=== PATIENT | male | born 1970 | race Caucasian/White ===

== ENCOUNTER 2018-11-06 17:44 | Observation (INO) | payer OTHER ==
--- NOTE | 2018-11-06 17:52 | PDOC ---
Attending Attestation - HPI HPI: 11/06/18 18:34 The patient is a 48 year old male, with a significant past medical history of sarcoidosis, who presents to the ED complaining of chest pain and shortness of breath for the past 3 days. He reports that his chest pain is localized on the left side of his chest. He denies any radiation of the pain. He notes that his pain is exacerbated when he takes a deep breath. He reports that he was at urgent care earlier today and was sent to the ED for further evaluation. The patient denies headache and dizziness. Denies fever, chills, nausea, vomiting, diarrhea or constipation. Allergies: None Past surgical history: None reported Social History: No alcohol, tobacco or drug use reported Constitutional: Awake, alert, oriented. No acute distress. Head: Normocephalic. Atraumatic Eyes: PERRL. EOMI. Conjunctivae are not pale. ENT: Mucous membranes are moist and intact. Posterior pharynx without exudates or erythema. Uvula midline. Neck: Supple. Full ROM. No lymphadenopathy. Cardiovascular: Regular rate. Regular rhythm. S1, S2 regular. Distal pulses are 2+ and symmetric. Pulmonary/Chest: No evidence of respiratory distress. Clear to auscultation bilaterally No wheezing, rales or rhonchi. Abdominal: Soft and non-distended. There is no tenderness. No rebound, guarding or rigidity. No organomegaly. No palpable masses. Good bowel sounds. Back: No CVA tenderness. Musculoskeletal: No edema. No cyanosis. No clubbing. Full range of motion in all extremities. Nocalf tenderness. Radial/pedal pulses are intact and 2+ bilaterally Skin: Skin is warm and dry. No petechiae. No purpura. Neurological: Alert and oriented to person, place, and time. Cranial nerves II -XII are grossly intact. Normal speech. Strength is grossly symmetric. No sensory deficits. Psychiatric: Good eye contact. Normal interaction, affect and behavior. <Fermín Urias - Last Filed: 11/06/18 18:34> - Resident Resident Name: Trevor Randolph - ED Attending Attestation I have performed the following: I have examined & evaluated the patient, The case was reviewed & discussed with the resident, I agree w/resident's findings & plan, Exceptions are as noted - Medical Decision Making 11/06/18 18:46 Assessment: The patient's pleuritic chest pain is most consistent with a musculoskeletal origin. He has had no symptoms of recurrence of sarcoidosis, chest infection, or embolism. His respiratory rate is normal. He is not dyspneic , but the shortness of breath he describes is more due to his discomfort. It is not related to exertion. Sarcoid has been in remission for number of years, he is consistently followed up with scans, most recent within the last 6 months. Plan: Chest x-ray, d-dimer, and further evaluation depending on results. <Abebe Pérez - Last Filed: 11/06/18 18:48>
--- NOTE | 2018-11-06 17:52 | PDOC ---
History of Present Illness - General Chief Complaint: Shortness of Breath Stated Complaint: SHORTNESS OF BREATH Time Seen by Provider: 11/06/18 17:51 Past History - Past Medical History Allergies/Adverse Reactions: Allergies Allergy/AdvReac Type Severity Reaction Status Date / Time No Known Allergies Allergy Verified 09/21/14 02:09 Home Medications: Ambulatory Orders Ibuprofen [Motrin -] 600 mg PO TID #21 tablet 09/21/14 Oxycodone HCl/Acetaminophen [Percocet 5-325 mg Tablet -] 1 - 2 tab PO Q6H #14 tablet 09/21/14 Tamsulosin HCl [Flomax] 0.4 mg PO DAILY #20 capsule 09/21/14 - Suicide/Smoking/Psychosocial Hx Smoking History: Never smoked Hx Alcohol Use: No *DC/Admit/Observation/Transfer - Discharge Dispostion Condition at time of disposition: Stable - Referrals - Patient Instructions - Post Discharge Activity
[2018-11-06 18:45] LABS: BASO % 0.4 % (0-2.0); EOS % 3.1 % (0-4.5); HEMATOCRIT 46.1 % (35.4-49); HEMOGLOBIN 15.3 GM/dl (11.7-16.9); MCH 29.3 pg (25.7-33.7); MCHC 33.2 g/dl (32.0-35.9); MEAN CELL VOLUME 88.2 fl (80-96); MEAN PLT VOLUME 8.9 fl (7.5-11.1); MONO % 10.9 % (3.8-10.2); NEUT % 65.6 % (42.8-82.8); PLATELET COUNT 232 K/MM3 (134-434); RBC 5.22 M/mm3 (4.00-5.60); RDW 12.9 % (11.9-15.9); WHITE BLOOD COUNT 5.5 K/mm3 (4.0-10.8)
--- NOTE | 2018-11-06 18:48 | PDOC ---
History of Present Illness - General Chief Complaint: Shortness of Breath Stated Complaint: SHORTNESS OF BREATH and chest pain Time Seen by Provider: 11/06/18 17:51 History Source: Patient Exam Limitations: No Limitations - History of Present Illness Initial Comments: 11/06/18 18:53 Patient is a 48M with history of sarcoidosis here today complaining of chest pain and shortness of breath for the past two days. Patient describes his pain as a stabbing in the left side of his chest that worsens with inspiration. Denies fevers, chills, nausea, vomiting. Denies cough. Denies taking steroids at this time for sarcoidosis. Denies leg swelling, hemoptysis, recent travel. Patient was evaluated at [facility] and referred to ED for chest pain workup including d-dimer. Past History - Past Medical History Allergies/Adverse Reactions: Allergies Allergy/AdvReac Type Severity Reaction Status Date / Time No Known Allergies Allergy Verified 11/06/18 17:53 Home Medications: Ambulatory Orders NK [No Known Home Medication] 11/06/18 Asthma: (sarcodosis) COPD: No - Suicide/Smoking/Psychosocial Hx Smoking History: Former smoker Have you smoked in the past 12 months: No Number of Cigarettes Smoked Daily: 1 If you are a former smoker, when did you quit?: 2009 Information on smoking cessation initiated: No Hx Alcohol Use: Yes (socially) Drug/Substance Use Hx: No Review of Systems - Review of Systems Comments:: 11/06/18 18:55 GENERAL/CONSTITUTIONAL: No fever or chills. No weakness. HEAD, EYES, EARS, NOSE AND THROAT: No change in vision. No ear pain or discharge. No sore throat. CARDIOVASCULAR: +chest pain +shortness of breath RESPIRATORY: No cough, wheezing, or hemoptysis. GASTROINTESTINAL: No nausea, vomiting, diarrhea or constipation. GENITOURINARY: No dysuria, frequency, or change in urination. MUSCULOSKELETAL: No joint or muscle swelling or pain. No neck or back pain. SKIN: No rash NEUROLOGIC: No headache, vertigo, loss of consciousness, or change in strength/ sensation. HEMATOLOGIC/LYMPHATIC: No anemia, easy bleeding, or history of blood clots. ALLERGIC/IMMUNOLOGIC: No hives or skin allergy. *Physical Exam - Vital Signs Last Vital Signs Temp Pulse Resp BP Pulse Ox 98.4 F 73 18 130/88 99 11/06/18 17:44 02/20/19 17:44 11/06/18 17:44 11/06/18 17:44 11/06/18 17:44 - Physical Exam Comments: 11/06/18 18:55 GENERAL: Awake, alert, and fully oriented, in no acute distress HEAD: No signs of trauma, normocephalic, atraumatic EYES: PERRLA, EOMI, sclera anicteric, conjunctiva clear ENT: Auricles normal inspection, hearing grossly normal, nares patent, oropharynx clear without exudates. Moist mucosa NECK: Normal ROM, supple, no lymphadenopathy, JVD, or masses LUNGS: No distress, speaks full sentences, clear to auscultation bilaterally HEART: Regular rate and rhythm, normal S1 and S2, no murmurs, rubs or gallops, peripheral pulses normal and equal bilaterally. ABDOMEN: Soft, nontender, normoactive bowel sounds. No guarding, no rebound. No masses EXTREMITIES: Normal inspection, Normal range of motion, no edema. No clubbing or cyanosis. NEUROLOGICAL: Cranial nerves II through XII grossly intact. Normal speech, normal gait, no focal sensorimotor deficits SKIN: Warm, Dry, normal turgor, no rashes or lesions noted. Moderate Sedation - Procedure Monitoring Vital Signs: Procedure Monitoring Vital Signs Temperature 98.4 F 11/06/18 17:44 Pulse Rate 73 11/06/18 17:44 Respiratory Rate 18 11/06/18 17:44 Blood Pressure 130/88 11/06/18 17:44 O2 Sat by Pulse Oximetry (%) 99 11/06/18 17:44 ED Treatment Course - LABORATORY CBC & Chemistry Diagram: 11/06/18 18:34 11/06/18 18:34 - RADIOLOGY Radiology Studies Ordered: Category Date Time Status CHEST PA & LAT [RAD] Stat Radiology 11/06/18 18:19 Ordered Medical Decision Making - Medical Decision Making 11/06/18 18:55 Patient is 48M here today with shortness of breath and pleuritic chest pain. Vitals normal and stable. DDx includes, but is not limited to: acs, sarcoid exacerbation, pe. Will evaluate with cardiac workup and d-dimer. Patient is low risk, but unsure of sarcoidosis role in increasing risk of pe. Will r/o, but belief safe to do so with d-dimer. Signed out to night attending. *DC/Admit/Observation/Transfer Diagnosis at time of Disposition: Chest pain - Discharge Dispostion Condition at time of disposition: Stable - Referrals Referrals: Martín Lisa [Primary Care Provider] - - Patient Instructions - Post Discharge Activity
[2018-11-06 18:52] LABS: INR 1.03 (0.82-1.09); PROTHROMBIN TIME (PATIENT) 11.5 SEC (10.2-13.0)
[2018-11-06 18:59] LABS: ALBUMIN 4.3 g/dl (3.4-5.0); ALK PHOS 65 U/L (45-117); ANION GAP 11 MMOL/L (8-16); BILIRUBIN,TOTAL 0.7 mg/dl (0.2-1); BLOOD UREA NITROGEN 17 mg/dl (7-18); CALCIUM 9.2 mg/dl (8.5-10); CHLORIDE 99 mmol/L (98-107); CO2 24 mmol/L (21-32); CREATININE 0.9 mg/dl (0.55-1.3); GLUCOSE,RANDOM 99 mg/dl (74-106); MAGNESIUM 1.9 mg/dL (1.8-2.4); POTASSIUM 3.8 mmol/L (3.5-5.1); SGOT/AST 27 U/L (15-37); SGPT/ALT 36 U/L (13-61); SODIUM 134 mmol/L (136-145); TOT PROT 7.4 g/dl (6.4-8.2)
[2018-11-06] MEDS ORDERED: KETOROLAC TROMETHAMINE 30 MG/1 ML VIAL IVPUSH ONE (20:18)
[2018-11-06] MEDS ORDERED: KETOROLAC TROMETHAMINE 30 MG/1 ML VIAL ONE (20:31)
--- NOTE | 2018-11-06 20:36 | PDOC ---
*Physical Exam - Vital Signs Last Vital Signs Temp Pulse Resp BP Pulse Ox 98.4 F 73 18 130/88 99 11/06/18 17:44 11/06/18 17:44 11/06/18 17:44 11/06/18 17:44 11/06/18 17:44 ED Treatment Course - LABORATORY CBC & Chemistry Diagram: 11/06/18 18:34 11/06/18 18:34 - ADDITIONAL ORDERS Additional order review: Laboratory Results 11/06/18 11/06/18 11/06/18 18:34 18:34 18:34 PT with INR INR D-Dimer 736 H Sodium Potassium Chloride Carbon Dioxide Anion Gap BUN Creatinine Creat Clearance w eGFR Random Glucose Calcium Magnesium Total Bilirubin AST ALT Alkaline Phosphatase Creatine Kinase 118 Troponin I < 0.03 Total Protein Albumin 11/06/18 11/06/18 18:34 18:34 PT with INR 11.5 INR 1.03 D-Dimer Sodium 134 L Potassium 3.8 Chloride 99 Carbon Dioxide 24 Anion Gap 11 BUN 17 Creatinine 0.9 Creat Clearance w eGFR > 60 Random Glucose 99 Calcium 9.2 Magnesium 1.9 Total Bilirubin 0.7 AST 27 ALT 36 Alkaline Phosphatase 65 Creatine Kinase Troponin I Total Protein 7.4 Albumin 4.3 11/06/18 18:34 RBC 5.22 MCV 88.2 MCHC 33.2 RDW 12.9 MPV 8.9 Neutrophils % 65.6 Lymphocytes % 20.0 Monocytes % 10.9 H Eosinophils % 3.1 Basophils % 0.4 - RADIOLOGY Radiology Studies Ordered: Category Date Time Status CHEST CTA [CT] Stat CT Scan 11/06/18 20:32 Ordered - Medications Given in the ED: ED Medications Discontinued Medications Generic Name Dose Route Start Last Admin Trade Name Freq PRN Reason Stop Dose Admin Ketorolac Tromethamine 30 mg 11/06/18 20:18 11/06/18 20:28 Toradol Injection - IVPUSH 11/06/18 20:19 30 mg ONCE ONE Administration Progress Note - Progress Note Progress Note: Care of this patient was transferred to me from Dr. Mcbride at 1900 hrs. Patient is a 48-year-old male who comes in complaining of pleuritic-type chest pain. Patient was sent in by his PMD to rule out PE. She has a d-dimer pending if the d-dimer is elevated I will do a CT angiogram of his chest. 20:30 A d-dimer was moderately elevated so CT angios the chest was ordered and will follow results. 21:[address] angiogram of his chest was positive for multiple enlarged lymph nodes most likely secondary to sarcoidosis and in addition to that there is a possible subsegmental small pulmonary embolism. We'll obtain ultrasound Dopplers of the legs to rule out DVT 22:30 DOPPLERS OF THE LEGS WAS OBTAINED AND THEY WERE NEGATIVE FOR ANY DVT However given the CT findings of the chest patient will be admitted to an inpatient bed for further evaluation tomorrow via VQ scan. 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 *DC/Admit/Observation/Transfer Diagnosis at time of Disposition: Chest pain - Discharge Dispostion Condition at time of disposition: Stable Decision to Admit order: Yes - Referrals Referrals: Martín Lisa [Primary Care Provider] - - Patient Instructions - Post Discharge Activity
[2018-11-06] MEDS ORDERED: FUROSEMIDE 40 MG/4 ML INJECTABLE VIAL IVPUSH ONE (21:10)
[2018-11-07 02:21] VITALS: BMI 29.0
[2018-11-07] MEDS ORDERED: ALBUTEROL SO4 8 GM HFA INHALER IH PRN (02:28)
--- NOTE | 2018-11-07 02:28 | HP ---
CHIEF COMPLAINT: Chest Pain, SOB PCP: Dr. Martín Lisa (paper products printer) HISTORY OF PRESENT ILLNESS: This is a 48 y/o man with a past medical history of Sarcoidosis (2009). Who presents to the ED with midsternal chest pain, SOB x 2 days. Patient describes the pain as chest pressure non-radiating with increased pain on deep inspiration. Patient reports taking Advil with some relief. Patient denies fever , chills, cough, dizziness, CAMPO, palpitations, AP, N/V/D, constipation, dysuria ER course was notable for: (1) (2) (3) Recent Travel: None PAST MEDICAL HISTORY: Sarcoidosis PAST SURGICAL HISTORY: L- hand I/D Colonoscopy Social History: Smoking: Former < 5 cig, last use 2009 Alcohol: Occasional Drugs: None Single- employed [employer] Former History: Parents alive and healthy Allergies No Known Allergies Allergy (Verified 11/06/18 17:53) HOME MEDICATIONS: Home Medications Medication Instructions Recorded NK [No Known Home Medication] 11/06/18 REVIEW OF SYSTEMS CONSTITUTIONAL: Absent: fever, chills, diaphoresis, generalized weakness, malaise, loss of appetite, weight change HEENT: Absent: rhinorrhea, nasal congestion, throat pain, throat swelling, difficulty swallowing, mouth swelling, ear pain, eye pain, visual changes CARDIOVASCULAR: chest pain, Absent: syncope, palpitations, irregular heart rate, lightheadedness, peripheral edema RESPIRATORY: shortness of breath, dyspnea with exertion Absent: cough, orthopnea, wheezing, stridor, hemoptysis GASTROINTESTINAL: Absent: abdominal pain, abdominal distension, nausea, vomiting, diarrhea, constipation, melena, hematochezia GENITOURINARY: Absent: dysuria, frequency, urgency, hesitancy, hematuria, flank pain, genital pain MUSCULOSKELETAL: Absent: myalgia, arthralgia, joint swelling, back pain, neck pain SKIN: Absent: rash, itching, pallor HEMATOLOGIC/IMMUNOLOGIC: Absent: easy bleeding, easy bruising, lymphadenopathy, frequent infections ENDOCRINE: Absent: unexplained weight gain, unexplained weight loss, heat intolerance, cold intolerance NEUROLOGIC: Absent: headache, focal weakness or paresthesias, dizziness, unsteady gait, seizure, mental status changes, bladder or bowel incontinence PSYCHIATRIC: Absent: anxiety, depression, suicidal or homicidal ideation, hallucinations. PHYSICAL EXAMINATION Vital Signs - 24 hr 11/06/18 11/06/18 11/06/18 17:44 20:37 20:38 Temperature 98.4 F Pulse Rate 73 85 Pulse Rate [ 85 Left Radial] Respiratory 18 14 Rate Blood Pressure 130/88 Blood Pressure 134/93 [Right Arm] O2 Sat by Pulse 99 97 97 Oximetry (%) 11/06/18 11/07/18 20:39 01:30 Temperature 97.5 F L Pulse Rate 85 70 Pulse Rate [ Left Radial] Respiratory 18 Rate Blood Pressure 133/97 Blood Pressure [Right Arm] O2 Sat by Pulse 97 98 Oximetry (%) GENERAL: Awake, alert, and fully oriented, in no acute distress. HEAD: Normal with no signs of trauma. EYES: Pupils equal, round and reactive to light, extraocular movements intact, sclera anicteric, conjunctiva clear. No lid lag. EARS, NOSE, THROAT: Ears normal, nares patent, oropharynx clear without exudates. Moist mucous membranes. NECK: Normal range of motion, supple without lymphadenopathy, JVD, or masses. LUNGS: Breath sounds equal, clear to auscultation bilaterally. No wheezes, and no crackles. No accessory muscle use. HEART: Regular rate and rhythm, normal S1 and S2 without murmur, rub or gallop. CP not reproducible to palpation ABDOMEN: Soft, nontender, not distended, normoactive bowel sounds, no guarding, no rebound, no masses. No hepatomegaly or splenomegaly. MUSCULOSKELETAL: Normal range of motion at all joints. No bony deformities or tenderness. No CVA tenderness. UPPER EXTREMITIES: 2+ pulses, warm, well-perfused. No cyanosis. No clubbing. No peripheral edema. LOWER EXTREMITIES: 2+ pulses, warm, well-perfused. No calf tenderness. No peripheral edema. NEUROLOGICAL: Cranial nerves II-XII intact. Normal speech. Gait not observed. PSYCHIATRIC: Cooperative. Good eye contact. Appropriate mood and affect. SKIN: Warm, dry, normal turgor, no rashes or lesions noted, normal capillary refill. Laboratory Results - last 24 hr 11/06/18 11/06/18 11/06/18 18:34 18:34 18:34 WBC 5.5 RBC 5.22 Hgb 15.3 Hct 46.1 MCV 88.2 MCH 29.3 MCHC 33.2 RDW 12.9 Plt Count 232 MPV 8.9 Absolute Neuts (auto) 3.6 Neutrophils % 65.6 Lymphocytes % 20.0 Monocytes % 10.9 H Eosinophils % 3.1 Basophils % 0.4 PT with INR 11.5 INR 1.03 D-Dimer Sodium 134 L Potassium 3.8 Chloride 99 Carbon Dioxide 24 Anion Gap 11 BUN 17 Creatinine 0.9 Creat Clearance w eGFR > 60 Random Glucose 99 Calcium 9.2 Magnesium 1.9 Total Bilirubin 0.7 AST 27 ALT 36 Alkaline Phosphatase 65 Creatine Kinase Troponin I Total Protein 7.4 Albumin 4.3 11/06/18 11/06/18 11/06/18 18:34 18:34 18:34 WBC RBC Hgb Hct MCV MCH MCHC RDW Plt Count MPV Absolute Neuts (auto) Neutrophils % Lymphocytes % Monocytes % Eosinophils % Basophils % PT with INR INR D-Dimer 736 H Sodium Potassium Chloride Carbon Dioxide Anion Gap BUN Creatinine Creat Clearance w eGFR Random Glucose Calcium Magnesium Total Bilirubin AST ALT Alkaline Phosphatase Creatine Kinase 118 Troponin I < 0.03 Total Protein Albumin ASSESSMENT/PLAN: This is a 48 y/o man with a PMHx of: Sracoidosis. Placed in Telemetry Observation for Chest Pain r/o ACS, SOB for further evaluation of their emergent condition. Plan: See Problem List FEN Po fluids as tolerated Replete lytes prn Low Na Diet DVT ppx OOB SCDs Heparin SQ Dispo: Observation Problem List - Problem (1) Chest pain Assessment/Plan: r/o ACS HEART Score 2 Cardiac monitoring Serial Enzymes Asa Code(s): R07.9 - CHEST PAIN, UNSPECIFIED (2) Sarcoidosis Assessment/Plan: CTA-multiple pulmonary nodules, ?subtle 0.3cm CAROL subsegmental embolus Chest Xray- neg infiltrates VQ Scan-pending Appreciate Pulmonology consult Would benefit from obtaining CTA records for comparison Patient's pulm Dr. Martín Lisa ([facility]) Toradol given in ED O2 Monitor vitals Monitor CBC, BMP Albuterol prn Code(s): D86.9 - SARCOIDOSIS, UNSPECIFIED (3) SOB (shortness of breath) Assessment/Plan: Likely secondary to Sarcoid flare vs PE Wells Score 0-3 PERC 0 dDimer 736 CTA- ?0.3 subtle CAROL subsegmental embolus, multiple pulmonary nodules VQ Scan in am Duplex LE- neg DVT Appreciate Pulmonology consult Code(s): R06.02 - SHORTNESS OF BREATH Visit type - Emergency Visit Emergency Visit: Yes ED Registration Date: 11/06/18 Care time: The patient presented to the Emergency Department on the above date and was hospitalized for further evaluation of their emergent condition. - New Patient This patient is new to me today: Yes Date on this admission: 11/07/18 - Critical Care Critical Care patient: No
[2018-11-07] MEDS ORDERED: traMADol HCL 50 MG TABLET PO PRN (07:42)
[2018-11-07] MEDS: ENOXAPARIN NA (PORCINE) 100 MG/1 ML DISP.SYRIN SQ SCH ×2 (08:44→20:18)
[2018-11-07 08:46] LABS: BASO % 0.3 % (0-2.0); EOS % 4.5 % (0-4.5); HEMATOCRIT 43.7 % (35.4-49); HEMOGLOBIN 14.4 GM/dl (11.7-16.9); LYMPH % 21.5 % (8-40); MCH 29.3 pg (25.7-33.7); MEAN CELL VOLUME 88.7 fl (80-96); MEAN PLT VOLUME 8.9 fl (7.5-11.1); NEUT % 62.7 % (42.8-82.8); PLATELET COUNT 210 K/MM3 (134-434); RBC 4.93 M/mm3 (4.00-5.60); RDW 12.6 % (11.9-15.9); WHITE BLOOD COUNT 4.4 K/mm3 (4.0-10.8)
[2018-11-07 09:01] LABS: ANION GAP 12 MMOL/L (8-16); BLOOD UREA NITROGEN 16 mg/dl (7-18); CHLORIDE 100 mmol/L (98-107); CO2 23 mmol/L (21-32); GLUCOSE,RANDOM 147 mg/dl (74-106); POTASSIUM 4.1 mmol/L (3.5-5.1); SODIUM 135 mmol/L (136-145)
[2018-11-07] MEDS ORDERED: HEPARIN NA (PORCINE) 5,000 UNITS/ML 1ML VIAL SQ SCH (10:00)
--- NOTE | 2018-11-07 11:59 | EKG ---
Test Reason : Blood Pressure : / mmHG Vent. Rate : 064 BPM Atrial Rate : 064 BPM P-R Int : 168 ms QRS Dur : 110 ms QT Int : 416 ms P-R-T Axes : 038 -11 023 degrees QTc Int : 429 ms NORMAL SINUS RHYTHM NORMAL ECG NO PREVIOUS ECGS AVAILABLE Confirmed by MISHA KERNS MD ([id number]) on 11/07/2018 11:59:41 AM Referred By: MD STEWART Confirmed By:MISHA KERNS MD
--- NOTE | 2018-11-07 12:37 | ECHO ---
Name: DONAL VELAZQUEZ Exam:Adult Echocardiogram Study Date: 11/07/2018 08:09 AM Age: 48 yrs Reason For Study: Chest pain Height: 68 in Weight: 190 lb BSA: 2.0 m2 MMode/2D Measurements & Calculations IVSd: 0.87 cm Ao root diam: 2.9 cm LVIDd: 5.2 cm LA dimension: 3.4 cm LVIDs: 3.6 cm LVPWd: 0.85 cm EDV(Teich): 129.3 ml LVOT diam: 2.1 cm ESV(Teich): 53.5 ml Doppler Measurements & Calculations MV E max cal: 61.8 cm/sec Ao V2 max: 116.2 cm/sec MV A max cal: 46.2 cm/sec Ao max P.4 mmHg MV E/A: 1.3 DON(V,D): 2.6 cm2 LV V1 max P.9 mmHg LV V1 max: 85.2 cm/sec Procedure A complete two-dimensional transthoracic echocardiogram was performed (2D, M-mode, Doppler and color flow Doppler). Left Ventricle The left ventricular size, thickness and function are normal. The left ventricular ejection fraction is normal. Ejection Fraction = 55-60%. The left ventricular wall motion is normal. Right Ventricle The right ventricle is normal in size and function. Atria Normal left and right atrial size and function. Mitral Valve There is trace mitral regurgitation. Tricuspid Valve There is trace tricuspid regurgitation. There was insufficient TR detected to calculate RV systolic p ressure. Aortic Valve The aortic valve is trileaflet. No hemodynamically significant valvular aortic stenosis. No aortic regurgitation is present. Pulmonic Valve There is no pulmonic valvular regurgitation. Great Vessels The aortic root is normal size. Pericardium/Pleura There is no pericardial effusion. Interpretation Summary The left ventricular size, thickness and function are normal The right ventricle is normal in size and function. There is trace mitral regurgitation. There is trace tricuspid regurgitation. MD Joselo Martell 11/07/2018 12:36 PM
--- NOTE | 2018-11-07 17:35 | CON.PULM ---
Consult Consult Specialty:: PULMONARY Referred by:: TING Reason for Consultation:: SOB/PE - History of Present Illness Chief Complaint: PLEURITIC CP History of Present Illness: The patient is a 48 year old male, with a significant past medical history of sarcoidosis, who presents to the ED complaining of chest pain and shortness of breath for the past 3 days. He reports that his chest pain is localized on the left side of his chest. He denies any radiation of the pain. He notes that his pain is exacerbated when he takes a deep breath. He reports that he was at urgent care and was sent to the ED for further evaluation. The patient denies headache and dizziness. Denies fever, chills, nausea, vomiting, diarrhea or constipation. 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 Cardio/Vascular: No: AFIB Pulmonary: Yes: Other (sarcoidosis) Gastrointestinal: No: Ascites Hepatobiliary: No: Cirrhosis Renal/: No: Renal Failure Heme/Onc: No: Anemia Psych: No: Addictions Endocrine: No: Diabetes Mellitus (left hand surgery) - Past Surgical History Additional Surgical History: left hand surg/bronchoscopy - Alcohol/Substance Use Hx Alcohol Use: Yes (socially) - Smoking History Smoking history: Former smoker Have you smoked in the past 12 months: No Aproximately how many cigarettes per day: 1 If you are a former smoker, when did you quit?: 2009 - Social History Place of : [facility] History of Recent Travel: No Home Medications - Allergies Allergies/Adverse Reactions: Allergies Allergy/AdvReac Type Severity Reaction Status Date / Time No Known Allergies Allergy Verified 11/06/18 17:53 - Home Medications Home Medications: Ambulatory Orders NK [No Known Home Medication] 11/06/18 Family Disease History - Family Disease History Family History: Unremarkable Review of Systems - Review of Systems Cardiovascular: reports: Chest Pain Respiratory: reports: SOB Physical Exam Vital Sings: Vital Signs Temperature 98.5 F 11/07/18 14:00 Pulse Rate 85 11/07/18 14:00 Respiratory Rate 18 11/07/18 14:00 Blood Pressure 119/62 11/07/18 14:00 O2 Sat by Pulse Oximetry (%) 98 11/07/18 14:00 Constitutional: Yes: Calm Eyes: Yes: EOM Intact HENT: Yes: Normocephalic Neck: Yes: Trachea Midline Cardiovascular: Yes: Regular Rate and Rhythm Respiratory: Yes: CTA Bilaterally Gastrointestinal: Yes: Normal Bowel Sounds Renal/: Yes: WNL Breast(s): Yes: WNL Musculoskeletal: Yes: WNL Extremities: Yes: WNL Labs: CBC, BMP 11/07/18 07:05 11/07/18 07:05 Imaging - Results Chest X-ray: Report Reviewed, Image Reviewed Cat Scan: Report Reviewed, Image Reviewed EKG: Report Reviewed Problem List - Problems (1) Pulmonary embolism Code(s): I26.99 - OTHER PULMONARY EMBOLISM WITHOUT ACUTE COR PULMONALE (2) Chest pain Code(s): R07.9 - CHEST PAIN, UNSPECIFIED (3) SOB (shortness of breath) Code(s): R06.02 - SHORTNESS OF BREATH (4) Sarcoidosis Code(s): D86.9 - SARCOIDOSIS, UNSPECIFIED Assessment/Plan Subsegmental PE with normal venous duplex/elevated d-dimer/h/o pleuritic chest pain Would start anticoagulation with Factor Xa inhibitor for total of 3 months either [id number] BID for 21 days then 20 mg daily for the remainder or Eliquis 10mg BID for 7 days then 5mg BID for remainder Would begin first dose tonight and OK for discharge in AM Would cancel V/Q scan as it will not change treatment course. Thank you Killian Callaway MD
[2018-11-08 07:04] VITALS: TEMP 98.1
[2018-11-08] MEDS ORDERED: APIXABAN 5 MG TABLET PO STA (08:46)
[2018-11-08] MEDS: ENOXAPARIN NA (PORCINE) 100 MG/1 ML DISP.SYRIN SQ SCH (09:25)
[2018-11-08 09:26] VITALS: BP 128/68; PULSE 66
--- NOTE | 2018-11-08 10:44 | DS ---
Physical Exam: SUBJECTIVE: Patient seen and examined at bedside. Mild chest discomfort but much improved. OBJECTIVE: Vital Signs Period Temp Pulse Resp BP Sys/Goldman Pulse Ox Last 24 Hr 98.0 F-98.5 F 57-85 18-19 115-135/62-75 96-98 PHYSICAL EXAM GENERAL: The patient is awake, alert, and fully oriented, in no acute distress. LUNGS: Breath sounds equal, clear to auscultation bilaterally, no wheezes, no crackles, no accessory muscle use. HEART: Regular rate and rhythm, S1, S2 ABDOMEN: Soft, nontender, nondistended EXTREMITIES: 2+ pulses, warm, well-perfused, no edema. NEUROLOGICAL: Cranial nerves II through XII grossly intact. Normal speech LABS Laboratory Tests 11/06/18 11/06/18 11/06/18 18:34 18:34 18:34 WBC 5.5 RBC 5.22 Hgb 15.3 Hct 46.1 MCV 88.2 MCH 29.3 MCHC 33.2 RDW 12.9 Plt Count 232 MPV 8.9 Absolute Neuts (auto) 3.6 Neutrophils % 65.6 Lymphocytes % 20.0 Monocytes % 10.9 H Eosinophils % 3.1 Basophils % 0.4 PT with INR 11.5 INR 1.03 D-Dimer Sodium 134 L Potassium 3.8 Chloride 99 Carbon Dioxide 24 Anion Gap 11 BUN 17 Creatinine 0.9 Creat Clearance w eGFR > 60 Random Glucose 99 Calcium 9.2 Magnesium 1.9 Total Bilirubin 0.7 AST 27 ALT 36 Alkaline Phosphatase 65 Creatine Kinase Troponin I Total Protein 7.4 Albumin 4.3 11/06/18 11/06/18 11/06/18 18:34 18:34 18:34 WBC RBC Hgb Hct MCV MCH MCHC RDW Plt Count MPV Absolute Neuts (auto) Neutrophils % Lymphocytes % Monocytes % Eosinophils % Basophils % PT with INR INR D-Dimer 736 H Sodium Potassium Chloride Carbon Dioxide Anion Gap BUN Creatinine Creat Clearance w eGFR Random Glucose Calcium Magnesium Total Bilirubin AST ALT Alkaline Phosphatase Creatine Kinase 118 Troponin I < 0.03 Total Protein Albumin 11/07/18 11/07/18 11/07/18 01:00 07:05 07:05 WBC 4.4 RBC 4.93 Hgb 14.4 Hct 43.7 MCV 88.7 MCH 29.3 MCHC 33.0 RDW 12.6 Plt Count 210 MPV 8.9 Absolute Neuts (auto) 2.8 Neutrophils % 62.7 Lymphocytes % 21.5 Monocytes % 11.0 H Eosinophils % 4.5 Basophils % 0.3 PT with INR INR D-Dimer Sodium 135 L Potassium 4.1 Chloride 100 Carbon Dioxide 23 Anion Gap 12 BUN 16 Creatinine 1.0 Creat Clearance w eGFR > 60 Random Glucose 147 H Calcium 9.0 Magnesium Total Bilirubin AST ALT Alkaline Phosphatase Creatine Kinase Troponin I < 0.02 Total Protein Albumin 11/07/18 07:05 WBC RBC Hgb Hct MCV MCH MCHC RDW Plt Count MPV Absolute Neuts (auto) Neutrophils % Lymphocytes % Monocytes % Eosinophils % Basophils % PT with INR INR D-Dimer Sodium Potassium Chloride Carbon Dioxide Anion Gap BUN Creatinine Creat Clearance w eGFR Random Glucose Calcium Magnesium Total Bilirubin AST ALT Alkaline Phosphatase Creatine Kinase Troponin I < 0.03 Total Protein Albumin HOSPITAL COURSE: Date of Admission:11/06/18 Date of Discharge: 11/08/18 Pre-hospital course The patient is a 48 year old male, with a significant past medical history of sarcoidosis, who presents to the ED complaining of chest pain and shortness of breath for the past 3 days. He reports that his chest pain is localized on the left side of his chest. He denies any radiation of the pain. He notes that his pain is exacerbated when he takes a deep breath. He reports that he was at urgent care earlier today and was sent to the ED for further evaluation. ED course (1) afebrile, no tachycardia (2) d-dimer elevated (3) troponin neg x 1 (4) CTA: equivocal small left upper lobe subsegmental embolus; Subsequent hospital course Bilateral lower extremity duplex was negative for DVT. Echo: LV normal, EF 55-60 %; RV normal; trace MR; trace TR. Patient was started on lovenox 1mg/kg BID, and transitioned to Eliquis prior to discharge with a recommendation for close followup with Dr. Lisa. Minutes to complete discharge: 35 Discharge Summary Reason For Visit: CHEST PAIN Current Active Problems Chest pain (Acute) Pulmonary embolism (Acute) SOB (shortness of breath) (Acute) Sarcoidosis (Acute) Condition: Improved - Instructions Diet, Activity, Other Instructions: A prescription has been sent to your pharmacy for Eliquis, a blood-thinning medication. Starting with your first dose tonight, take 10mg of Eliquis twice daily for seven days. Then take 5mg of Eliquis twice daily thereafter. You will need to follow up with your primary care/pulmonology provider, Dr. Lisa, for further prescriptions. Return to the emergency department for any new or worsening symptoms. Referrals: Martín Lisa [Primary Care Provider] - Disposition: HOME - Home Medications Comprehensive Discharge Medication List: Ambulatory Orders NK [No Known Home Medication] 11/06/18 This patient is new to me today: No Emergency Visit: Yes ED Registration Date: 11/06/18 Care time: The patient presented to the Emergency Department on the above date and was hospitalized for further evaluation of their emergent condition. Critical Care patient: No - Discharge Referral Referred to [facility] No
== END 2018-11-08 12:16 | disposition home or self-care (01) ==
LOC: FER 17:44 → SUPCPDRO 17:44 → FM/S 23:53 → UNDOADMOB 11-07 00:46 → FM/S 11-07 00:46
PROVIDERS: ADMIT Internal Medicine; ATTEND Nurse Practitioner Acute Care
PROC: 3E0333Z Introduction of Anti-inflammatory into Peripheral Vein, Percutaneous Approach (ICD-10-PCS; principal; 2018-11-06)
PROC: 3E033GC Introduction of Other Therapeutic Substance into Peripheral Vein, Percutaneous Approach (ICD-10-PCS; 2018-11-06)
DX: R07.9 Chest pain, unspecified (principal); D86.9 Sarcoidosis, unspecified; I26.99 Other pulmonary embolism without acute cor pulmonale; R06.02 Shortness of breath; R59.9 Enlarged lymph nodes, unspecified
CPT/HCPCS: 36415; 71046-TC-FY; 71275-TC; 80048; 80053; 82550; 83735; 84484; 85025; 85379; 85610; 93005; 93306-TC; 93970-TC; 99285-25; G0378

== ENCOUNTER 2021-03-11 09:38 | Emergency (ER) | payer OTHER ==
[2021-03-11 10:04] VITALS: BMI 28.8
[2021-03-11] MEDS ORDERED: LACTATED RINGERS SOLUTION 1000 ML INFUS.BAG IV ONE (10:34)
[2021-03-11] MEDS ORDERED: ACETAMINOPHEN 1000 MG/100 ML VIAL (NON FORMULARY) IVPB ONE (10:34)
[2021-03-11 10:59] LABS: BASO % 2.5 % (0-2.0); EOS % 1.6 % (0-4.5); HEMATOCRIT 44.6 % (35.4-49); LYMPH % 21.7 % (8-40); MCH 29.4 pg (25.7-33.7); MCHC 33.7 g/dl (32.0-35.9); MEAN CELL VOLUME 87.2 fl (80-96); MEAN PLT VOLUME 8.4 fl (7.5-11.1); MONO % 11.2 % (3.8-10.2); PLATELET COUNT 204 10^3/uL (134-434); RBC 5.12 M/mm3 (4.00-5.60); RDW 13.4 % (11.9-15.9); WHITE BLOOD COUNT 4.1 K/mm3 (4.0-10.0)
[2021-03-11 11:10] LABS: INR 0.94 (0.83-1.09); PROTHROMBIN TIME (PATIENT) 11.6 SEC (9.7-13.0)
[2021-03-11 11:13] LABS: ACTIVATED PTT 28.1 SECONDS (25.2-36.5)
[2021-03-11 11:18] LABS: CHLORIDE 105 mmol/L (98-107); SODIUM 139 mmol/L (136-145)
[2021-03-11 11:19] LABS: ANION GAP 6 MMOL/L (8-16); BLOOD UREA NITROGEN 20.1 mg/dL (7-18); CALCIUM 9.9 mg/dL (8.5-10.1); CO2 28 mmol/L (21-32)
[2021-03-11 11:21] LABS: GLUCOSE,RANDOM 118 mg/dL (74-106)
[2021-03-11 11:22] LABS: SGOT/AST 14 U/L (15-37); SGPT/ALT 30 U/L (13-61)
[2021-03-11 11:23] LABS: CREATININE 1.1 mg/dL (0.55-1.3)
[2021-03-11 11:25] LABS: BILIRUBIN,TOTAL 0.4 mg/dL (0.2-1)
[2021-03-11 11:26] LABS: ALK PHOS 60 U/L (45-117)
[2021-03-11 14:30] VITALS: BP 128/79; PULSE 65; TEMP 97.8
== END 2021-03-11 14:31 | disposition home or self-care (01) ==
LOC: JER 09:38
PROC: 3E0333Z Introduction of Anti-inflammatory into Peripheral Vein, Percutaneous Approach (ICD-10-PCS; principal; 2021-03-11)
DX: R07.2 Precordial pain (principal)
CPT/HCPCS: 36415; 71046-TC-FY; 71275-TC; 80053; 84484; 85025; 85610; 85730; 93005; 93010; 99285-25; J0131; Q9967